=== PATIENT | male | born 1980 | race Caucasian/White ===

== ENCOUNTER 2018-01-13 21:22 | Observation (INO) | payer MEDICAID ==
[2018-01-13] MEDS ORDERED: NS 1,000 ML IV ONE ×2 (21:35→23:15)
[2018-01-13] MEDS ORDERED: ONDANSETRON 4 MG/2 ML VIAL IVP ONE (21:35)
[2018-01-13] MEDS ORDERED: methylPREDNISolone SOD SUCC 125 MG/2 ML VIAL IVP ONE (21:36)
[2018-01-13] MEDS ORDERED: FAMOTIDINE 20 MG/2 ML SDV IVP ONE (21:36)
[2018-01-13] MEDS ORDERED: EPINEPHrine 1 MG/ML INJ IM ONE (21:40)
[2018-01-13] MEDS ORDERED: NS 2,000 ML IV ONE (21:40)
--- NOTE | 2018-01-13 21:45 | EDPHY ---
H & P Stated Complaint: vomiting allergy to nut Time Seen by Provider: 01/13/18 21:37 HPI/ROS: CHIEF COMPLAINT: Allergic reaction HISTORY OF PRESENT ILLNESS: 37-year-old male with known tree nut allergy arrives via private vehicle after he ate "cashew cheese" without knowing it contained cashews, approximately an hour prior to arrival. He started complaining of difficulty breathing, difficulty swallowing, nausea, he vomited once prior to my evaluating him. He also had a syncopal episode while EN route to the hospital was seated in the vehicle. He continues to feel not at his baseline. He is currently complaining of tonsillar glossal abnormality, dyspnea. No wheezing. He typically carries an EpiPen but forgot this evening. REVIEW OF SYSTEMS: 10 systems reviewed and negative with the exception of the elements mentioned in the history of present illness [PAST MEDICAL & SURGICAL HISTORY: Known tree nut allergy history. No history of coronary artery disease. SOCIAL HISTORY:Nonsmoker , , no tobacco or illicit drug use, no cocaine use FAMILY HISTORY: No family history of premature coronary artery disease PHYSICAL EXAM (Prior to examination, patient consented to physical exam, hands were washed and my usual and customary physical exam procedures followed) 1) GENERAL: Well-developed, well-nourished, alert and oriented. Appears uncomfortable. 2) HEAD: Normocephalic, atraumatic 3) HEENT: Pupils equal, round, reactive to light bilaterally. Sclera anicteric. Nasopharynx, oropharynx, clear, no lesions. Moist Mucous membranes. No gross tonsillar or glossal enlargement 4) NECK: Full range of motion, no meningeal signs. 5) LUNGS: Clear auscultation bilaterally, no wheezes, no rhonchi, no retractions. 6) HEART: Regular rate and rhythm, no murmur, no heave, no gallop. 7) ABDOMEN: No guarding, no rebound, no focal tenderness, negative McBurney's, negative Camp's, negative Rovsing's, negative peritoneal sign, 8) MUSCULOSKELETAL: Moving all extremities, no focal areas of tenderness, no obvious trauma. No peripheral edema or discoloration. 9) BACK: No CVA tenderness, no midline vertebral tenderness, no fluctuance, no step-off, no obvious trauma, no visual or palpable abnormality. 10) SKIN: No rash, no petechiae. 11) Psychiatric: Patient is oriented X 3, there is no agitation. 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 - Social History Smoking Status: Never smoked Constitutional: Initial Vital Signs Temperature (C) 36.7 C 01/13/18 21:25 Heart Rate 73 01/13/18 21:25 Respiratory Rate 18 01/13/18 21:25 Blood Pressure 141/74 H 01/13/18 21:25 O2 Sat (%) 99 01/13/18 21:25 O2 Delivery Mode Nasal Cannula O2 (L/minute) 2 Allergies/Adverse Reactions: melon Allergy (Verified 01/13/18 21:31) pear Allergy (Verified 01/13/18 21:31) tree nut [Nuts] Allergy (Verified 01/13/18 21:31) Home Medications: Medication Instructions Recorded Albuterol Sulfate [Proair Hfa] 01/13/18 Omeprazole 01/13/18 Medical Decision Making ED Course/Re-evaluation: 9:40 p.m.: I have evaluated the patient. Patient has a known tree nut allergy history, forgot his EpiPen, consumed cashews. I think his symptoms are consistent with acute allergic reaction to cashews. He is complaining of not feeling well overall, feeling tonsillar and glossal enlargement, He will be given H1 H2 blockers, Solu-Medrol, epinephrine, IV fluids and re-evaluated. He has no complaints of chest pain, dyspnea, headache. 11:13 p.m.: Nursing staff requested I evaluate patient as he had a systolic blood pressure of 90. I re-evaluated the patient at this time he is smiling, states that he is feeling"totally better". Exam is abdomen which is soft no guarding no rebound. No complaints of dizziness, nausea, dyspnea. Heart rate in the 90s. Blood pressure cycle at this time systolic of 101. No chest pain. No dyspnea. Discussed case with secondary supervising physician Dr Kruger in ER. 11:30 p.m.: Revaluation. He remains asymptomatic . He is hypotensive. Will obtain laboratory studies including troponin. 12:07 a.m.: Point of care troponin reported me as elevated at 0.6. 12:31 a.m.: Consultation with hospitalist Dr. Stanley will admit patient, request patient be admitted to the Step-Down Unit, hold on Lovenox at this time - Data Points Laboratory Results: Laboratory Results 01/13/18 21:33 01/13/18 21:33 01/13/18 01/13/18 01/13/18 23:54 21:33 21:33 WBC 7.24 10^3/uL 10^3/uL (3.80-9.50) RBC 4.65 10^6/uL 10^6/uL (4.40-6.38) Hgb 14.8 g/dL g/dL (13.7-17.5) Hct 42.1 % % (40.0-51.0) MCV 90.5 fL fL (81.5-99.8) MCH 31.8 pg pg (27.9-34.1) MCHC 35.2 g/dL g/dL (32.4-36.7) RDW 12.6 % % (11.5-15.2) Plt Count 212 10^3/uL 10^3/uL (150-400) MPV 9.9 fL fL (8.7-11.7) Neut % (Auto) 28.6 % L % (39.3-74.2) Lymph % (Auto) 62.0 % H % (15.0-45.0) Routt % (Auto) 7.2 % % (4.5-13.0) Eos % (Auto) 1.7 % % (0.6-7.6) Baso % (Auto) 0.4 % % (0.3-1.7) Nucleat RBC Rel Count 0.0 % % (0.0-0.2) Absolute Neuts (auto) 2.07 10^3/uL 10^3/uL (1.70-6.50) Absolute Lymphs (auto) 4.49 10^3/uL H 10^3/uL (1.00-3.00) Absolute Monos (auto) 0.52 10^3/uL 10^3/uL (0.30-0.80) Absolute Eos (auto) 0.12 10^3/uL 10^3/uL (0.03-0.40) Absolute Basos (auto) 0.03 10^3/uL 10^3/uL (0.02-0.10) Absolute Nucleated RBC 0.00 10^3/uL 10^3/uL (0-0.01) Immature Gran % 0.1 % % (0.0-1.1) Immature Gran # 0.01 10^3/uL 10^3/uL (0.00-0.10) Sodium 139 mEq/L mEq/L (135-145) Potassium 3.9 mEq/L mEq/L (3.3-5.0) Chloride 104 mEq/L mEq/L (97-110) Carbon Dioxide 21 mEq/l L mEq/l (22-31) Anion Gap 14 mEq/L mEq/L (6-14) BUN 21 mg/dL mg/dL (7-23) Creatinine 0.8 mg/dL mg/dL (0.7-1.3) Estimated GFR > 60 Glucose 128 mg/dL H mg/dL (70-100) Calcium 10.2 mg/dL mg/dL (8.5-10.4) POC Troponin I 0.60 ng/mL H ng/mL (0.00-0.08) Medications Given: Discontinued Medications Diphenhydramine HCl (Benadryl Injection) 50 mg IVP EDNOW ONE Stop: 01/13/18 21:37 Last Admin: 01/13/18 21:56 Dose: 50 mg Epinephrine HCl (Epinephrine) 0.3 mg IM EDNOW ONE Stop: 01/13/18 21:41 Last Admin: 01/13/18 21:55 Dose: 0.3 mg Famotidine (Pepcid) 20 mg IVP EDNOW ONE Stop: 01/13/18 21:37 Last Admin: 01/13/18 21:55 Dose: 20 mg Sodium Chloride (Ns) 1,000 mls @ 0 mls/hr IV EDNOW ONE; Wide Open PRN Reason: Protocol Stop: 01/13/18 21:36 Last Admin: 01/13/18 21:56 Dose: 1,000 mls Sodium Chloride (Ns) 1,000 mls @ 0 mls/hr IV EDNOW ONE; Wide Open PRN Reason: Protocol Stop: 01/13/18 23:16 Last Admin: 01/13/18 23:17 Dose: 1,000 mls Sodium Chloride (Ns) 2,000 mls @ 0 mls/hr IV EDNOW ONE; Wide Open PRN Reason: Protocol Stop: 01/13/18 21:41 Last Admin: 01/13/18 21:40 Dose: 2,000 mls Methylprednisolone Sodium Succinate (Solu-Medrol) 125 mg IVP EDNOW ONE Stop: 01/13/18 21:37 Last Admin: 01/13/18 21:56 Dose: 125 mg Ondansetron HCl (Zofran) 4 mg IVP EDNOW ONE Stop: 01/13/18 21:36 Last Admin: 01/13/18 21:55 Dose: 4 mg Point of Care Test Results: Chemistry 01/13/18 23:54 POC Troponin I 0.60 ng/mL H ng/mL (0.00-0.08) Departure - Departure Disposition: [facility] In[facility] Acute Clinical Impression: Elevated troponin I level, Allergy to cashew nut Allergic reaction Qualifiers: Encounter type: initial encounter Qualified Code(s): T78.40XA - Allergy, unspecified, initial encounter Acute anaphylaxis Qualifiers: Encounter type: initial encounter Qualified Code(s): T78.2XXA - Anaphylactic shock, unspecified, initial encounter Condition: Fair
[2018-01-13 23:50] LABS: PLATELET COUNT 212 10^3/uL (150-400)
[2018-01-14] MEDS ORDERED: ACETAMINOPHEN 650 MG SUPP PR PRN (00:37)
[2018-01-14] MEDS ORDERED: ACETAMINOPHEN 325 MG TAB PO PRN (00:37)
[2018-01-14] MEDS ORDERED: PROMETHAZINE HCL 25 MG/ML INJ IVP PRN (00:37)
[2018-01-14] MEDS ORDERED: ONDANSETRON 4 MG/2 ML VIAL IVP PRN (00:37)
[2018-01-14] MEDS ORDERED: ONDANSETRON DISINTEGRATING 4 MG TAB PO PRN (00:37)
[2018-01-14] MEDS ORDERED: diphenhydrAMINE 25 MG CAP PO PRN (00:37)
[2018-01-14] MEDS ORDERED: NS 1,000 ML IV SCH (00:45)
[2018-01-14] MEDS ORDERED: ALBUTEROL 3 ML DEYVIAL IH PRN (01:24)
[2018-01-14] MEDS ORDERED: EPINEPHrine 1 MG/ML INJ ONE (02:21)
--- NOTE | 2018-01-14 04:21 | GHP ---
DATE OF ADMISSION: 01/14/2018 SOURCE: Patient provides history, appears reliable. EMR was reviewed and case discussed with ED pro vider. CHIEF COMPLAINT: Allergic reaction. HISTORY OF PRESENT ILLNESS: This is a very pleasant 37-year-old gentleman with past medical history significant for asthma and an anaphylactic reaction to tree nuts, who presents to the emergency depar tment today approximately an hour after consuming a cashew cheese which he did not realize was nut-ba sed. Patient reports that within a few minutes after ingestion, he felt some oral swelling and diffi culty swallowing. His symptoms progressed and worsened to include some difficulty with breathing due to the swelling, and lightheadedness. Patient arrived to the emergency department via private vehic le. En route, he reports that he had a syncopal episode in the car. Patient forgot his EpiPen. He has a previous history of anaphylactic-like reaction in childhood, multiple hospital stays, but never in adulthood as he is always usually pretty careful with his food intake. In the emergency department, patient received Benadryl, famotidine, epinephrine, Solu-Medrol, Zofran, and multiple liters of fluid. He was noted to be intermittently hypotensive, and this pattern emanuel nued. Patient reports that he had did not have any further lightheadedness, never had any chest pain or palpitations until he received the epinephrine, and this has subsequently subsided. Patient reports that his symptoms are nearly resolved. He has just a little bit of minimal tongue sw elling, but no shortness of breath or chest pain. Patient without any family history of anaphylactic -type reactions or CAD. REVIEW OF SYSTEMS: Ten systems were reviewed and otherwise negative except as noted above. ALLERGIES: Melon, pear, and tree nuts. HOME MEDICATIONS: Albuterol, epinephrine, omeprazole. PAST MEDICAL HISTORY: Significant for mild intermittent asthma triggered by pets and exercise. Hist ory of anaphylactic reaction to tree nuts, as noted above in HPI. PAST SURGICAL HISTORY: Patient denies any procedures. FAMILY HISTORY: Negative for CAD or anaphylactoid-type reaction. SOCIAL HISTORY: Patient is , lives with his family. He does not smoke or drink. He has very rare use of recreational marijuana. CODE STATUS: Full. PHYSICAL EXAMINATION: VITAL SIGNS: Upon arrival to the emergency department, blood pressure 141/74, heart rate 73, respiratory rate 18, O2 sat 99% on room air, temperature 36.7. Current vital signs a vailable: Blood pressure is 107/62, heart rate 86, respiratory rate 14, O2 sat 91% on room air. Pat ient sat up and blood pressure cuff engaged with systolic blood pressure of 95. GENERAL: No acute d istress. Pleasant adult gentleman is lying quietly in bed. He does appear quite fatigued. Face howell s appear a little bit puffy, but no gabriel edema appreciated. HEAD: Normocephalic, atraumatic. EYES : Extraocular muscles are intact. Pupils with decreased reactivity to light bilaterally, but symmet coni. No scleral icterus or conjunctival injection. ENT: Mucous membranes appear moist. No orophar yngeal erythema or exudates. No tongue swelling or pharyngeal swelling. No edema. No nasal dischar ge. NECK: Supple. Trachea midline. CV: Regular rate and rhythm. No murmurs, rubs, or gallops ap preciated. RESPIRATORY: Unlabored breathing. Lungs are clear to auscultation bilaterally. No whee zes, rales, or rhonchi. ABDOMEN: Positive bowel sounds. Soft, nontender to palpation. No rebound, guarding, or masses appreciated. : No suprapubic tenderness to palpation. No Roman catheter in place. MUSCULOSKELETAL: Strength grossly intact. Moves upper and lower extremities. Strength symm etric. NEURO: Grossly nonfocal. No facial drooping. Moves all extremities as noted above. PSYCH: Patient appears fatigued, but he is pleasant and cooperative. Thought process, content, and questio ns are all appropriate. DIAGNOSTICS: WBC: 7.24, H and H are 14.8 and 42.1, MCV of 90.5, platelet count is 212, neutrophil p ercent is 28.6. No bands. Sodium is 139, potassium 3.9, chloride 104, CO2 21, anion gap of 14, BUN 21, creatinine 0.8, GFR greater than 60, glucose is 128, calcium is 10.2. Gpenr-yy-eetb troponin 0.6 . EKG: Reviewed myself. Shows sinus arrhythmia in the 80s, less than [address] depression in the anteri or leads. QTc 500. There are no acute ST elevations. Chest x-ray: Image was reviewed myself. Report is still pending. Clear. Nothing acute appreciated . ASSESSMENT AND PLAN: Pleasant 37-year-old gentleman who presents following ingestion of tree nuts to which he has history of anaphylactic reaction. 1. Allergic reaction, anaphylactoid: Patient is status post steroids, H2 blockers, antihistamines, epinephrine, and intravenous fluids. Patient's blood pressures continue to fluctuate and he will con tinue to receive intravenous fluid hydration overnight. Patient reports that his symptoms have signi ficantly improved and his swelling has improved, as well. He will be monitored overnight closely on the step-down unit. Advance diet as tolerated. 2. Hypotension: Continue with intravenous fluids. Patient also notes a for the past week he has be en on a ketogenic diet and has had decreased oral intake. Continue intravenous fluids as noted above . Electrolytes appear to be appropriate. 3. Elevated troponin: Fjyvn-en-yfgb troponin is 0.6. Lab value has been requested. This is likely related to patient's hypotension. He has no previous history of chest-pain type symptoms. No famil y history. No additional risk factors for cardiac disease. Once patient's blood pressures have impr jessica, will plan to repeat an EKG as well as an a.m. troponin to trend. Likely troponin leak due to s train with hypotension. No additional need for aspirin or anticoagulation at this time. 4. History of mild intermittent asthma: Albuterol p.r.n. 5. Fluid, electrolyte, nutrition: Intravenous fluids as noted above. Electrolytes adequate, do not require replacement, but will monitor. 6. Advance diet as tolerated. Patient without any current complaints or difficulty with swallowing. 7. Prophylaxis: Sequential compression devices. Holding anticoagulation. Patient overall low risk . Encourage mobilization. 8. Code status: Full. DISPOSITION: patient admitted to observation status on the SDU for close cardiac monitoring. /[id number]/MODL
--- NOTE | 2018-01-14 11:47 | ECHO ---
[email or web address] [address] [address] Main: [phone] Fax: Transthoracic Echocardiogram Name: JUHI PENNINGTON MR#: [id number] Study Date: 01/14/2018 Study Time: 10:55 AM Date of : 1980 Age: 37 year(s) Height: 175.3 cm (69 in.) Weight: 74.84 kg (165 lb.) BSA: 1.9 m2 Gender: Male Examination: Echo Indication: Elevated troponin/allergic reaction kenji Image Quality: Contrast: Requested by: Evelio Cheng BP: 112 mmHg/65 mmHg Heart Rate: Rhythm: Indication: Elevated troponin/allergic reaction kenji Procedure Staff Labor Delivery Specialist: Lupe Velasco LIBERTAD Reading Physician: Sravani Baum MD Requesting Provider: Conclusions: Normal size left ventricle. No LV hypertrophy. Normal global systolic LV function. The ejection fraction is estimated to be 65-70 %. No regional wall motion abnormality. Normal diastolic LV function. Normal size right ventricle. Normal RV function. The left atrium is normal in size. The right atrium is normal in size. There is no previous echocardiogram for comparison. Measurements: Chambers Valvular Assessment AV/MV Valvular Assessment TV/PV Normal Normal Normal Name Value Range Name Value Range Name Value Range Ao Reema (MM): 3.6 cm (2.2 cm-3.7 AV meanP mmHg ( - ) cm) MV E Vmax: 0.88 m/s ( - ) IVSd (2D): 0.7 cm (0.6 cm-1.1 MV A Vmax: 0.57 m/s ( - ) cm) MV E/A: 1.54 ( - ) LVDd (2D): 4.5 cm (4.2 cm-5.9 cm) LVDs (2D): 2.6 cm (2.1 cm-4 cm) LVPWd (2D): 0.9 cm (0.6 cm-1 cm) LVEF (MOD4): 73 % (>=55 %) EF Range: 65-70 % Continued Measurements: Patient: JUHI PENNINGTON Study Date: 01/14/2018 Page 1 of 2 10:55 AM Chambers Valvular Assessment AV/MV Name Value Name Value LADs: 3.5 cm MV E' Septal: 0.11 m/s LADs Lon.1 cm MV E/E' Septal: 7.90 LA Area: 13.7 cm2 MV E/E' Lateral: 6.70 Additional Vessels Name Value Ao Ascendin.9 cm Findings: Left Ventricle: Normal size left ventricle. No LV hypertrophy. Normal global systolic LV function. The ejection fraction is estimated to be 65-70 %. No regional wall motion abnormality. Normal diastolic LV function. Right Ventricle: Normal size right ventricle. Normal RV function. Left Atrium: The left atrium is normal in size. Right Atrium: The right atrium is normal in size. Mitral Valve: The mitral valve is normal in appearance and function. Trivial mitral valve regurgitation. Aortic Valve: The aortic valve is normal in appearance and function. The aortic valve is tri-leaflet. Tricuspid Valve: The tricuspid valve is normal in appearance and function. Trivial tricuspid valve regurgitation. Pulmonic Valve: The pulmonic valve is normal in appearance and function. Aorta: The aorta is normal. Pericardium: No pericardial effusion. (No Signature Object) Patient: JUHI PENNINGTON Study Date: 01/14/2018 Page 2 of 2 10:55 AM [id number]
[2018-01-14 12:27] VITALS: BP 111/70
--- NOTE | 2018-01-14 13:58 | GDS ---
ALL DIAGNOSES: 1. Acute allergic reaction. 2. Elevated troponin. HOSPITAL COURSE: A 37-year-old man with a known tree nut allergy ate cheese with cashews in it. He had an immediate anaphylactic reaction afterwards. He did not have his EpiPen with him. He presente d to the emergency department where he received steroids, Benadryl, epinephrine, and Pepcid. Afterwa rds troponin was checked and found to be mildly elevated. He had no chest pain, exercises regularly with no recent reduction in his exercise capacity and no angina or shortness of breath with exercise. Troponins peaked at 1.3, are trending down. His EKG was normal. His echocardiogram was normal. B ecause of this, I do not think he needs any additional inpatient risk stratification. I think he can follow up with Cardiology as an outpatient. I have given him a referral to see [facility] within a few days to a week. He is comfortable with this plan. I think this most likely represents demand ischemia in the setting of significant hypotension as well as after receiving epinephrine. He is di scharged in stable condition. I have given him another prescription for his EpiPens. /[id number]/MODL
--- NOTE | 2018-01-14 15:07 | GCON ---
CRITICAL CARE CONSULTATION DATE OF CONSULTATION: 01/14/2018 HISTORY OF PRESENT ILLNESS: This patient is a healthy 37-year-old male who does have a history of as thma as well as significant nut allergies, who normally carries an EpiPen with him but did not have i t last night, when he was at a restaurant, consuming cheese which he did not realize had nuts in it. In any case, he developed facial edema, difficulty swallowing, some lightheadedness, and shortness o f breath. En route to the emergency room, he had a syncopal episode but was conscious on arrival. H e was immediately treated with Benadryl, Pepcid, epinephrine, Solu-Medrol, Zofran, and IV fluids marika use his blood pressure was low well. He continued to have a blood pressure that was low, but it did respond to fluid each time. He was therefore admitted to the intensive care unit overnight where his symptoms resolved completely and his blood pressure normalized. He never required pressors or advan jarrell airways. REVIEW OF SYSTEMS: Otherwise negative. PAST MEDICAL HISTORY: Includes intermittent asthma as well as anaphylaxis in the past, but no other medical history other than GERD. PAST SURGICAL HISTORY: None. HOME MEDICATIONS: Include albuterol, EpiPen, and omeprazole. FAMILY HISTORY: Negative. PHYSICAL EXAM: VITAL SIGNS: Today, his blood pressure was 113/64, heart rate of 87, respirations of 12, oxygen saturation 96% on room air. GENERAL: He was awake and alert, in no apparent distress. Able to speak in full sentences without using accessory muscles for breathing. HEENT: Pupils equall y round and reactive to light, nonicteric and noninjected. Mucous membranes are moist without erythe ma or exudate. NECK: Supple without adenopathy or jugular vein distention. LUNGS: Breath sounds w ere clear to auscultation bilaterally without wheezes, rubs, or rales and no evidence of stridor. HE ART: Regular rate and rhythm without murmurs, rubs, or gallops. ABDOMEN: Soft, nontender, nondiste nded without hepatosplenomegaly. EXTREMITIES: Show no clubbing, cyanosis, or edema. NEUROLOGIC: N onfocal, including cranial nerves, deep tendon reflexes. SKIN: Warm and dry, without evidence of ra sh. OBJECTIVE DATA: Includes a white count of 7.2, hematocrit 42, platelets of 212 on arrival. No signi ficant eosinophils. Basic metabolic panel was normal. Glucose 128. A point of care troponin was 0. 6 and on laboratory testing 1.3, followed by 0.93. Chest x-ray was unremarkable. Echocardiogram was performed today that revealed an ejection fraction of 65% to 70% and was otherwise completely normal . ASSESSMENT AND PLAN: 1. Anaphylaxis due to a well-documented nut allergy. He was treated appropriately, and he said that he plans to be certain to carry his EpiPen with him at all times, though it has been quite a few yea rs since he has required it. In any case, he did resolve his symptoms quite quickly and tolerated th is well. 2. Hypotension, probably due to #1. He responded to IV fluids. I do not see any evidence to suppor t sepsis, adrenal insufficiency, or acute coronary syndromes. 3. Troponin leak. I think is probably related to his hypotension and/or epinephrine. The drop in h is troponin is highly supportive of a noncoronary event. In addition, he lacks any coronary artery d isease risk factors, so I do not feel that further stratification is required at this time. I think that he is stable for discharge. /[id number]/MODL
--- NOTE | 2018-01-14 16:22 | ASDISCHSUM ---
Discharge Information Plan Status:Home with No Needs Medically Cleared to Leave:01/14/2018 Discharge Date:01/14/2018 02:00 PM CM D/C Disposition:Home, Routine, Self-Care ADT D/C Disposition:Home, Routine, Self-Care Projected Discharge Date:01/14/2018 02:00 PM Transportation at D/C:Family Discharge Delay Reason: Follow-Up Date:01/14/2018 02:00 PM Discharge Slot: Final Diagnosis: Placement Information Patient Contact Information Contact Name:ZACH Relationship: Address:[address] [facility] Work Phone: City:[place] Alternate Phone: [facility]/Zip Code:[place] [address] Email: Financial Information Financial Class:Medicaid Primary Plan Desc:MEDICA[employer] HE[employer] SERVICE [employer]IST Primary Plan Number:[id number] Secondary Plan Desc: Secondary Plan Number: Assessment Information LACE LACE Length of stay for Answers: Less than 1 day current admission Acuity / Level of Answers: No Care: Did the patient have an inpatient admission? Comorbidities - select Answers: Other Notes: asthma all that apply # of Emergency department Answers: 1-2 visits in the last 6 months Score: 2 Date Signed: 01/14/2018 04:20 PM Electronically Signed By:JOSE RAUL Paul Case Management Discharge Plan Note Case Management Discharge Discharge Order Complete? Answers: Yes Patient to Obtain Answers: Independently Medications Transportation Arranged Answers: Family/Friends Discharge Comments Notes: Pt was admitted with an anaphalactic reaction after eating cheese with nuts. He has an allergy to tree nuts. He is discharging home today with no CM needs. Date Signed: 01/14/2018 04:21 PM Electronically Signed By:Aleksandra Johansen MSW Intervention Information
--- NOTE | 2018-01-16 10:46 | CPEKG ---
Test Reason : OPEN Blood Pressure : / mmHG Vent. Rate : 082 BPM Atrial Rate : 081 BPM P-R Int : 142 ms QRS Dur : 096 ms QT Int : 412 ms P-R-T Axes : 072 073 055 degrees QTc Int : 482 ms Sinus rhythm Low voltage, extremity leads Borderline prolonged QT interval Confirmed by David Corado ([id number]) on 01/16/2018 10:46:02 AM Referred By: Confirmed By:David Corado
== END 2018-01-14 14:00 | disposition home or self-care (01) ==
LOC: F2N 01-14 01:46
PROVIDERS: ADMIT Family Medicine; ATTEND Student in an Organized Health Care Education/Training Program
DX: T78.01XA Anaphylactic reaction due to peanuts, initial encounter (principal); R79.89 Other specified abnormal findings of blood chemistry; E86.9 Volume depletion, unspecified; I95.9 Hypotension, unspecified; J45.20 Mild intermittent asthma, uncomplicated; Z91.010 Allergy to peanuts
CPT/HCPCS: 71046; 93005; 93306; 96361; 96372; 96374; 96375; 99285; G0378; 84484-PO; J0171; J2405; J2930

== ENCOUNTER 2018-01-16 11:18 | Observation (INO) | payer MEDICAID ==
[2018-01-16] MEDS ORDERED: NS 1,000 ML IV ONE ×2 (11:32→12:32)
--- NOTE | 2018-01-16 12:32 | EDPHY ---
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 He was admitted due to syncopal episodes, anaphylaxis and elevated troponin. This reportedly treated up and then down. He also had an echocardiogram this reportedly normal. Discharged home on Tuesday. On Tuesday was feeling tired but overall okay. Today he woke feeling more tired and dizzy and lightheaded. He denies any spinning sensation. He has felt very nauseated. Symptoms worsened at work so he tried to go home. He was unable to drive, thus he pulled over and called his . His called EMS and met him on the side of the road. She states she witnessed a minute or so of slurred speech and him "kind of slumping over." He denies any chest pain during this. He denies any unilateral weakness. He has no shortness of breath. No fever. No other associated complaints or modifying factors REVIEW OF SYSTEMS: 10 systems were reviewed and negative with the exception of the elements mentioned in the history of present illness. PCP: Dr. Yasmin Rossi SPECIALISTS: Pending cardiology appointment PAST MEDICAL HISTORY: Anaphylaxis PAST SURGICAL HISTORY: No surgical history SOCIAL HISTORY: Nonsmoker. Occasional marijuana use. 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 Lives independently with his spouse FAMILY HISTORY: Noncontributory EXAMINATION: General Appearance: Alert, no distress. pale Head: normocephalic, atraumatic Eyes: Pupils equal and round, no conjunctival pallor or injection. EOM symmetric without nystagmus or dysconjugate gaze ENT, Mouth: Mucous membranes moist Neck: Normal inspection, supple, non-tender Respiratory: Lungs are clear to auscultation Cardiovascular: Regular rate and rhythm. No murmur Gastrointestinal: Abdomen is soft and nontender Back: non-tender, no bony abnormalities Neurological: GCS 15. A&O, nonfocal, normal gait. Strength is symmetric in all 4 limbs. Light sensory symmetric in the extremities. No pronator drift. Normal [id number]. NIH stroke scale 0 Skin: pale. non-diaphoretic. Warm and dry, no rash Extremities: Nontender, no pedal edema Psychiatric: Mood and affect normal DIFFERENTIAL DIAGNOSES: Including but not limited to TIA, near-syncope, vertigo, vertebrobasilar syndrome, ACS, PE MDM: 11:50 a.m. Lightheadedness, dizziness near-syncope with possible TIA prior to arrival. Patient's neuro exam is well within normal limits. No signs of stroke. No chest pain. Vital signs are within normal limits. I will review his most recent admission and repeat cardiac workup as well as TIA stroke workup. He is in no acute distress. He is conversing appropriately. 12:35 p.m. Point of care troponin is slightly elevated 0.1. I have reviewed his previous studies and this is the lowest of the troponin values in the past week. He continues to deny any chest pain at this time as well. No tachycardia, tachypnea or hypoxemia. Case discussed with Dr. Reyes. He recommends admission the hospital, MRI of the brain, carotid Dopplers and conveyor monitor with neurology consultation inpatient. 1:00 p.m. Case discussed with hospitalist Sierra Patel NP. Patient be admitted to Dr. Le. She request a PCU bed. He is admitted stable condition. I have not ordered aspirin as I have seen any imaging of the brain as we have ordered MRI in lieu of CT. SUPERVISION: Patient was independently examined, but I discussed the case with my secondary supervising physician Dr. Reyes CONSULTATION: Hospitalist admission - Diagnostics Imaging Results: Imaging Impressions Chest X-Ray 01/16/18 12:32 Impression: No acute findings in the chest. Brain MRI 01/16/18 12:53 Impression: Normal. No evidence of acute ischemia or white matter disease. Findings discussed with Emergency Department physician, Dr. Gabrielle Curran at 01/16/2018 14:27. Carotid Doppler Study 01/16/18 12:53 Impression: Mildly diffusely elevated common and internal carotid artery velocities, with no significant atherosclerosis identified. Although velocities would correspond to a 50-69% stenosis, given the normal huggins-scale appearance of the carotids, no significant carotid stenosis is suspected. Measurement of carotid stenosis is based on velocity parameters that correlate the residual internal carotid diameter with [place] Symptomatic Carotid Endarterectomy Trial (NASCET) based stenosis levels. Findings discussed with Nilson Larson PA-C on January 16, 2018 at 1353 hours. - History Smoking Status: Never smoked - Objective Vital Signs: Initial Vital Signs Temperature (C) 98.2 F 01/16/18 11:31 Heart Rate 75 01/16/18 11:31 Respiratory Rate 16 01/16/18 11:31 Blood Pressure 132/84 H 01/16/18 11:31 O2 Sat (%) 97 01/16/18 11:31 O2 Delivery Mode Room Air Allergies/Adverse Reactions: melon Allergy (Verified 01/13/18 21:31) pear Allergy (Verified 01/13/18 21:31) tree nut [Nuts] Allergy (Verified 01/13/18 21:31) Home Medications: Medication Instructions Recorded Albuterol Sulfate [Proair Hfa] 2 puffs IH Q4H PRN 01/13/18 Omeprazole 40 mg PO Q3D 01/13/18 Epipen 0.3 MG 0.3 mg SC PRN PRN #3 01/14/18 Fluticasone Nasal [Flonase Nasal 2 sprays NASAL DAILY 01/16/18 [place] (RX)] Herbals/Supplements -Info Only 1 ea PO DAILY 01/16/18 [place]-3 Fatty Acids [Fish Oil 1000 1,000 mg PO DAILY 01/16/18 mg (*)] Laboratory Results: Laboratory Results 01/16/18 00:48 01/16/18 11:20 01/16/18 01/16/18 01/16/18 12:47 11:20 11:20 WBC RBC Hgb Hct MCV MCH MCHC RDW Plt Count MPV Neut % (Auto) Lymph % (Auto) [place] % (Auto) Eos % (Auto) Baso % (Auto) Nucleat RBC Rel Count Absolute Neuts (auto) Absolute Lymphs (auto) Absolute Monos (auto) Absolute Eos (auto) Absolute Basos (auto) Absolute Nucleated RBC Immature Gran % Immature Gran # D-Dimer 0.33 ug/mLFEU ug/mLFEU (0.00-0.50) Sodium 139 mEq/L mEq/L (135-145) Potassium 4.1 mEq/L mEq/L (3.3-5.0) Chloride 103 mEq/L mEq/L (97-110) Carbon Dioxide 27 mEq/l mEq/l (22-31) Anion Gap 9 mEq/L mEq/L (6-14) BUN 15 mg/dL mg/dL (7-23) Creatinine 0.8 mg/dL mg/dL (0.7-1.3) Estimated GFR > 60 Glucose 95 mg/dL mg/dL (70-100) Calcium 10.3 mg/dL mg/dL (8.5-10.4) POC Troponin I 0.10 ng/mL H ng/mL (0.00-0.08) 01/16/18 00:48 WBC 4.41 10^3/uL 10^3/uL (3.80-9.50) RBC 4.58 10^6/uL 10^6/uL (4.40-6.38) Hgb 14.3 g/dL g/dL (13.7-17.5) Hct 41.5 % % (40.0-51.0) MCV 90.6 fL fL (81.5-99.8) MCH 31.2 pg pg (27.9-34.1) MCHC 34.5 g/dL g/dL (32.4-36.7) RDW 12.5 % % (11.5-15.2) Plt Count 202 10^3/uL 10^3/uL (150-400) MPV 9.8 fL fL (8.7-11.7) Neut % (Auto) 39.2 % L % (39.3-74.2) Lymph % (Auto) 49.9 % H % (15.0-45.0) [place] % (Auto) 8.8 % % (4.5-13.0) Eos % (Auto) 1.1 % % (0.6-7.6) Baso % (Auto) 0.5 % % (0.3-1.7) Nucleat RBC Rel Count 0.0 % % (0.0-0.2) Absolute Neuts (auto) 1.73 10^3/uL 10^3/uL (1.70-6.50) Absolute Lymphs (auto) 2.20 10^3/uL 10^3/uL (1.00-3.00) Absolute Monos (auto) 0.39 10^3/uL 10^3/uL (0.30-0.80) Absolute Eos (auto) 0.05 10^3/uL 10^3/uL (0.03-0.40) Absolute Basos (auto) 0.02 10^3/uL 10^3/uL (0.02-0.10) Absolute Nucleated RBC 0.00 10^3/uL 10^3/uL (0-0.01) Immature Gran % 0.5 % % (0.0-1.1) Immature Gran # 0.02 10^3/uL 10^3/uL (0.00-0.10) D-Dimer Sodium Potassium Chloride Carbon Dioxide Anion Gap BUN Creatinine Estimated GFR Glucose Calcium POC Troponin I Medications Given: Acetaminophen (Tylenol) 650 mg PO Q4HRS PRN PRN Reason: Pain, Mild/Fever, Can Take PO Stop: 07/15/18 14:00 Last Admin: 01/16/18 14:58 Dose: 650 mg Discontinued Medications Sodium Chloride (Ns) 1,000 mls @ 0 mls/hr IV EDNOW ONE; Wide Open PRN Reason: Protocol Stop: 01/16/18 11:33 Last Admin: 01/16/18 11:33 Dose: 1,000 mls Sodium Chloride (Ns) 1,000 mls @ 0 mls/hr IV EDNOW ONE; Wide Open PRN Reason: Protocol Stop: 01/16/18 12:33 Last Admin: 01/16/18 12:47 Dose: 1,000 mls Point of Care Test Results: Chemistry 01/16/18 12:47 POC Troponin I 0.10 ng/mL H ng/mL (0.00-0.08) Departure - Departure Disposition: [facility] Inpatient Acute Clinical Impression: TIA (transient ischemic attack), Near syncope Condition: Good
[2018-01-16 12:47] LABS: PLATELET COUNT 202 10^3/uL (150-400)
[2018-01-16] MEDS ORDERED: ACETAMINOPHEN 325 MG TAB PO PRN (14:01)
[2018-01-16] MEDS ORDERED: ONDANSETRON DISINTEGRATING 4 MG TAB PO PRN (14:01)
[2018-01-16] MEDS ORDERED: ONDANSETRON 4 MG/2 ML VIAL IVP PRN (14:01)
[2018-01-16 14:48] VITALS: BP 131/85
[2018-01-16] MEDS ORDERED: ALBUTEROL 60 PUFFS/8 GM MDI IH PRN (15:00)
--- NOTE | 2018-01-16 16:01 | PDGENHP ---
History and Physical - Chief Complaint dizziness - History of Present Illness 37yo generally healthy M who presents after episode of dizziness. Was just hospitalized Tuesday-Tuesday at this hospital for anaphylactoid reaction to eating tree nuts. He had a mild troponin elevation noted at that time to 1.3 without chest pain or ischemic ecg changes. This was felt to be demand ischemia in setting of hypotension. He felt ok Tuesday but then felt "off" this morning upon waking. He drove to work but then left early because he was feeling very fatigued. While he was driving home, he developed a lightheaded sensation associated with nausea (but no emesis), flushing, and feeling clammy. He stopped and pulled over to the side of the road and called his who alerted EMS and brought him to the ED. Upon his meeting him on the side of the road , he was apparently mumbling and having trouble talking. He also appeared to "slump over" for a few seconds. He denies any breathing difficulties or chest pain or palpitations. No tinnitus or hearing/vision changes. No sensation of room spinning. He did not pass out. He had a very similar sensation to this just prior to coming to the hospital last Tuesday except he did lose consciousness with that episode. In the ED, there was concern for a TIA so a brain MRI was ordered and patient was admitted for further evaluation. I have reviewed records from recent admission including labs, ecgs, TTE report. History Information - Allergies/Home Medication List Allergies/Adverse Reactions: melon Allergy (Verified 01/13/18 21:31) pear Allergy (Verified 01/13/18 21:31) tree nut [Nuts] Allergy (Verified 01/13/18 21:31) Home Medications: Albuterol Sulfate [Proair Hfa] 2 puffs IH Q4H PRN 01/13/18 [Last Taken Unknown] Omeprazole 40 mg PO Q3D 01/13/18 [Last Taken 01/15/18] Fluticasone Nasal [Flonase Nasal [place] (RX)] 2 sprays NASAL DAILY 01/16/18 [ Last Taken Unknown] Herbals/Supplements -Info Only 1 ea PO DAILY 01/16/18 [Last Taken Unknown] [place]-3 Fatty Acids [Fish Oil 1000 mg (*)] 1,000 mg PO DAILY 01/16/18 [Last Taken Unknown] I have personally reviewed and updated: family history, medical history, social history, surgical history - Past Medical History Additional medical history: 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 Works in [employer]. Review of Systems Review of Systems: ROS: 10pt was reviewed & negative except for what was stated in HPI & below Physical Exam Physical Exam: Temp Pulse Resp BP Pulse Ox 37.1 C 68 16 131/85 H 98 01/16/18 14:41 01/16/18 14:41 01/16/18 14:41 01/16/18 14:41 01/16/18 14:41 Constitutional: no apparent distress, appears nourished, not in pain Eyes: PERRL, anicteric sclera, EOMI Ears, Nose, Mouth, Throat: moist mucous membranes, hearing normal, ears appear normal, no oral mucosal ulcers Cardiovascular: regular rate and rhythym, no murmur, rub, or gallop, No edema Respiratory: no respiratory distress, no rales or rhonchi, clear to auscultation Gastrointestinal: normoactive bowel sounds, soft, non-tender abdomen, no palpable masses Genitourinary: no bladder fullness, no bladder tenderness Skin: warm, normal color, no rashes or abrasions, no fluctuance, no induration, No mottled Musculoskeletal: full muscle strength, no muscle tenderness, normal joint ROM, no joint effusions Neurologic: AAOx3 Psychiatric: interacting appropriately, not anxious, not encephalopathic, thought process linear Lab Data & Imaging Review 01/16/18 00:48 01/16/18 11:20 WBC 4.41 10^3/uL (3.80-9.50) 01/16/18 00:48 RBC 4.58 10^6/uL (4.40-6.38) 01/16/18 00:48 Hgb 14.3 g/dL (13.7-17.5) 01/16/18 00:48 Hct 41.5 % (40.0-51.0) 01/16/18 00:48 MCV 90.6 fL (81.5-99.8) 01/16/18 00:48 MCH 31.2 pg (27.9-34.1) 01/16/18 00:48 MCHC 34.5 g/dL (32.4-36.7) 01/16/18 00:48 RDW 12.5 % (11.5-15.2) 01/16/18 00:48 Plt Count 202 10^3/uL (150-400) 01/16/18 00:48 MPV 9.8 fL (8.7-11.7) 01/16/18 00:48 Neut % (Auto) 39.2 % (39.3-74.2) L 01/16/18 00:48 Lymph % (Auto) 49.9 % (15.0-45.0) H 01/16/18 00:48 [place] % (Auto) 8.8 % (4.5-13.0) 01/16/18 00:48 Eos % (Auto) 1.1 % (0.6-7.6) 01/16/18 00:48 Baso % (Auto) 0.5 % (0.3-1.7) 01/16/18 00:48 Nucleat RBC Rel Count 0.0 % (0.0-0.2) 01/16/18 00:48 Absolute Neuts (auto) 1.73 10^3/uL (1.70-6.50) 01/16/18 00:48 Absolute Lymphs (auto) 2.20 10^3/uL (1.00-3.00) 01/16/18 00:48 Absolute Monos (auto) 0.39 10^3/uL (0.30-0.80) 01/16/18 00:48 Absolute Eos (auto) 0.05 10^3/uL (0.03-0.40) 01/16/18 00:48 Absolute Basos (auto) 0.02 10^3/uL (0.02-0.10) 01/16/18 00:48 Absolute Nucleated RBC 0.00 10^3/uL (0-0.01) 01/16/18 00:48 Immature Gran % 0.5 % (0.0-1.1) 01/16/18 00:48 Immature Gran # 0.02 10^3/uL (0.00-0.10) 01/16/18 00:48 D-Dimer 0.33 ug/mLFEU (0.00-0.50) 01/16/18 11:20 Sodium 139 mEq/L (135-145) 01/16/18 11:20 Potassium 4.1 mEq/L (3.3-5.0) 01/16/18 11:20 Chloride 103 mEq/L (97-110) 01/16/18 11:20 Carbon Dioxide 27 mEq/l (22-31) 01/16/18 11:20 Anion Gap 9 mEq/L (6-14) 01/16/18 11:20 BUN 15 mg/dL (7-23) 01/16/18 11:20 Creatinine 0.8 mg/dL (0.7-1.3) 01/16/18 11:20 Estimated GFR > 60 01/16/18 11:20 Glucose 95 mg/dL (70-100) 01/16/18 11:20 Calcium 10.3 mg/dL (8.5-10.4) 01/16/18 11:20 POC Troponin I 0.10 ng/mL (0.00-0.08) H 01/16/18 12:47 Troponin I 0.081 ng/mL (0.000-0.034) H 01/16/18 13:29 TSH 2.710 uIU/mL (0.465-4.680) 01/16/18 13:29 Visualized and Interpreted Chest x-ray results: Yes Chest X-Ray results: no infiltrate, normal, normal heart size Visualized and Interpreted EKG results: Yes EKG Interpretation: Positive for: normal sinsus rhythm EKG additional interpertation: Early repolarization in early precordial leads, no acute ischemia, no qtc prolongation Assessment & Plan Assessment: 37yo generally healthy M who presents after episode of dizziness. Plan: #Presyncope: Brain MRI normal and without acute CVA. Recent TTE normal. Given his lack risk factors, his age, and clinical presentation, I have a very low suspicion that this was a TIA. For same reasons, also low concern for cardiac/ arrhythmogenic process. Additionally, he was just monitored overnight without arrhythmias so I do not feel that is reason to keep him in hospital. D-dimer was normal making PE unlikely as well. My biggest suspicion is for vasovagal event vs anxiety provoked. I discussed that he can possibly discharge later this afternoon if he can tolerate PO and ambulate without difficulty. #Troponin elevation: This is decreasing in an appropriate fashion from a few days ago. No chest pain or ischemic ecg changes. Will not continue to trend. Recommend outpatient stress test as before. #Asthma: No flare, continue home meds. Diet: regular VTE ppx: low risk, ambulation Code: full Dispo: Admit under observation
--- NOTE | 2018-01-16 17:32 | PDDCSUM ---
Discharge Summary Discharge Summary: Date of Admission: 01/16/2018 Date of Discharge: 01/16/2018 Procedures/Studies: brain MRI, bilateral carotid ultrasound Discharge Diagnoses: 1. Presyncope 2. Troponin elevation 3. Recent anaphylaxis 4. Asthma Brief Hospital Course: 37yo M who was just hospitalized Tuesday-Tuesday at this hospital for anaphylactoid reaction to eating tree nuts presents after episode of lightheadedness associated with nausea, flushing, feeling clammy, and general fatigue which occurred while driving home from work. He did not lose consciousness. Normal neurologic exam. Brain MRI and duplex ultrasound of carotids normal. A d-dimer was negative. Recent TTE normal. Given his lack of risk factors, his age, and clinical presentation, I have a very low suspicion that this was a CVA/TIA. For same reasons, also low concern for cardiac/ arrhythmogenic process. This was more consistent with anxiety vs vasovagal event. Of note, he had a mild troponin elevation during last hospitalization to 1.3 without chest pain or ischemic ecg changes. He had no chest pain with this episode today. His troponin was down to 0.08. This was felt to be demand ischemia in setting of rather significant hypotension and epinephrine use during his anaphylaxis. I recommended CT angiography of his coronaries to further investigate as he essentially had an abnormal stress test. I advised that this could change our management as he may benefit from aspirin/statin therapy. The patient declined this option at this time but would like to pursue this as an outpatient with his PCP. While I don't this this test is urgent, I clearly communicated that this be done in the very near future. Medications: Please refer to EMR for complete list. No changes were made this admission. Follow Up Plan: 1. PCP visit in [address] angiography of coronaries 3. Lipid panel pending at time of discharge Physical Exam: Vitals reviewed, normotensive and HR 70s. Alert and oriented with no focal neurologic deficits. RRR without m/r/g, lungs clear, abdomen soft , no rashes, no edema.
[2018-01-17] MEDS ORDERED: FLUTICASONE NASAL 120 SPRAYS/16 GM MDI EACHNARE SCH (09:00)
--- NOTE | 2018-01-18 10:16 | CPEKG ---
Test Reason : OPEN Blood Pressure : / mmHG Vent. Rate : 059 BPM Atrial Rate : 058 BPM P-R Int : 131 ms QRS Dur : 094 ms QT Int : 444 ms P-R-T Axes : 066 069 029 degrees QTc Int : 440 ms Sinus rhythm Low voltage, extremity leads ST elev, probable normal early repol pattern Confirmed by Sundar Campo [id number] on 01/18/2018 10:15:26 AM Referred By: Confirmed By:Sundar Campo
[2018-01-19] MEDS ORDERED: PANTOPRAZOLE SODIUM 40 MG TAB PO SCH (08:00)
== END 2018-01-16 17:50 | disposition home or self-care (01) ==
LOC: EDUNIT# → INTOOBSV 13:29 → F2W 14:36
PROVIDERS: ADMIT Internal Medicine; ATTEND Internal Medicine
DX: R55 Syncope and collapse (principal); E86.0 Dehydration; J45.909 Unspecified asthma, uncomplicated; Z91.010 Allergy to peanuts
CPT/HCPCS: 70551; 71045; 93005; 93880; 96360; 99285; G0378; 84484-PO